=== PATIENT | male | born 1975 | race Caucasian/White ===

== ENCOUNTER 2016-11-03 16:57 | Emergency (ER) | payer OTHER ==
[~2016-11-03] VITALS: Ht 172.7 cm; Wt 118.0 kg
[~2016-11-03 16:57] MED LIST: AUGMENTIN875 MG PO; DUONEB IN; HYDROCHLOROT12.5 MG PO; PROAIR HFA IN
[2016-11-03] MEDS ORDERED: LISINOP/HCTZ1 TA1 PO (17:08)
[2016-11-03] MEDS ORDERED: ATORVASTATIN CA20 MG PO (17:17)
[2016-11-03] MEDS ORDERED: LISINOP/HCTZ1 TA2 PO (17:18)
[2016-11-03] MEDS ORDERED: VENTOLIN H108 MCG/AC IN (17:19)
[2016-11-03] MEDS ORDERED: TRAMADOL HYDROC50 MG PO (17:43)
[2016-11-03 18:10] VITALS: BP 139/84
== END 2016-11-03 18:10 | disposition home or self-care (01) | DRG 563 ==
LOC: ED 16:57
PROC: 0QSQXZZ Reposition Right Toe Phalanx, External Approach (ICD-10-PCS; principal; 2016-11-03)
DX: S92.511A Displaced fracture of proximal phalanx of right lesser toe(s), initial encounter for closed fracture (principal); W22.09XA Striking against other stationary object, initial encounter; Y92.009 Unspecified place in unspecified non-institutional (private) residence as the place of occurrence of the external cause

== ENCOUNTER 2017-12-27 23:57 | Emergency (ER) | payer OTHER ==
[~2017-12-27] VITALS: Ht 172.7 cm; Wt 103.8 kg
[~2017-12-27 23:57] MED LIST changes: +ATORVASTATIN CA20 MG PO; +LISINOP/HCTZ1 TA1 PO; +LISINOP/HCTZ1 TA2 PO; +TRAMADOL HYDROC50 MG PO; +VENTOLIN H108 MCG/AC IN
[2017-12-28 00:25] LABS: GFR > 60 ML/MIN (>=60 (CALC)); GFR FOR AFR.AMER. > 60 ML/MIN (>=60 (CALC))
[2017-12-28 00:39] LABS: ALBUMIN 4.7 g/dL (3.2-5.0); ALKALINE PHOSPHATASE 77 u/l (38-126); ANION GAP 23 (6-22 (CALC)); BILIRUBIN, TOTAL 0.3 mg/dL (0.0-1.4); BUN 8 mg/dL (9-20); BUN/CREATININE RATIO 12 (12-20 (CALC)); CARBON DIOXIDE 22 mmol/l (22-30); CHLORIDE 102 mmol/l (95-108); CREATININE 0.7 mg/dL (0.7-1.3); GFR > 60 ML/MIN (>=60 (CALC)); GFR FOR AFR.AMER. > 60 ML/MIN (>=60 (CALC)); POTASSIUM 4.1 mmol/l (3.5-5.1); SGOT/AST 60 u/l (17-59); SGPT/ALT 83 u/l (21-72); SODIUM 143 mmol/l (137-146); TOTAL PROTEIN 7.8 g/dL (6.3-8.2)
[2017-12-28 00:50] LABS: MYOGLOBIN 127 ng/mL (0 - 121)
[2017-12-28 00:51] LABS: HEMATOCRIT 45.3 % (39.0-50.0); HEMOGLOBIN 15.9 g/dl (14.0-18.0); IMMATURE GRANULOCYTES 0.5 % (0.0-5.0); MEAN CORPUSCULAR HGB CONC 35.1 g/L CALC (32.0-36.0); NEUT# 6.81 thou/uL (1.82-7.42); RED BLOOD COUNT 4.82 mill/uL (4.70-6.10); RED CELL DISTRI WIDTH 11.8 % (11.5-15.5)
[2017-12-28] MEDS ORDERED: LISINOPRIL10 MG PO (01:14)
[2017-12-28] MEDS ORDERED: EFFEXOR37.5 MG PO (01:14)
[2017-12-28] MEDS ORDERED: JANUVIA50 MG PO (01:15)
[2017-12-28] MEDS ORDERED: LIPITOR10 M1 PO (01:16)
[2017-12-28] MEDS ORDERED: PREDNISONE20 MG PO (01:17)
[2017-12-28] MEDS ORDERED: AUGMENTIN500TAB PO (01:18)
[2017-12-28 01:45] LABS: URINE BILIRUBIN - DIPSTICK NEGATIVE (NEGATIVE); URINE BLOOD DIPSTICK NEGATIVE (NEGATIVE); URINE COLOR YELLOW; URINE GLUCOSE - DIPSTICK >=1000 mg/dL (NEGATIVE); URINE KETONE TRACE mg/dL (NEGATIVE); URINE LEUK ESTERASE NEGATIVE (NEGATIVE); URINE NITRITE - DIPSTICK NEGATIVE (Negative); URINE PROTEIN - DIPSTICK NEGATIVE (NEG-TRACE); URINE SPECIFIC GRAVITY <=1.005; URINE UROBILINOGEN - DIPSTICK 0.2 E.U./dL (0.2)
[2017-12-28 01:46] LABS: URINE CLARITY CLEAR
[2017-12-28 01:47] LABS: BARBITURATES NEGATIVE (NEGATIVE); COCAINE NEGATIVE (NEGATIVE); METHADONE NEGATIVE (NEGATIVE); OXCYCODONE NEGATIVE (NEGATIVE); TETRAHYDROCANNABIONOL NEGATIVE (NEGATIVE); TRICYLIC ANTIDEPRESSANTS NEGATIVE (NEGATIVE)
[2017-12-28 01:50] VITALS: BP 126/74
== END 2017-12-28 01:50 | disposition left against medical advice (07) | DRG 69 ==
LOC: ED 23:57
PROVIDERS: Emergency Medicine
DX: G45.9 Transient cerebral ischemic attack, unspecified (principal); I65.22 Occlusion and stenosis of left carotid artery; E11.9 Type 2 diabetes mellitus without complications; I10 Essential (primary) hypertension; Z91.19 Patient's noncompliance with other medical treatment and regimen
CPT/HCPCS: Q9967

== ENCOUNTER 2018-03-10 23:42 | Emergency (ER) | payer OTHER ==
[~2018-03-10] VITALS: Ht 172.7 cm; Wt 105.9 kg
[~2018-03-10 23:42] MED LIST changes: +AUGMENTIN500TAB PO; +EFFEXOR37.5 MG PO; +JANUVIA50 MG PO; +LIPITOR10 M1 PO; +LISINOPRIL10 MG PO; +PREDNISONE20 MG PO
[2018-03-11] MEDS ORDERED: TRULICITY1.5 MG/0.5 SC (00:23)
[2018-03-11] MEDS ORDERED: SEROQUEL25 MG PO (00:24)
[2018-03-11 00:46] LABS: HEMATOCRIT 41.9 % (39.0-50.0); HEMOGLOBIN 14.8 g/dl (14.0-18.0); IMMATURE GRANULOCYTES 0.7 % (0.0-5.0); MEAN CELL VOLUME 96.8 fL CALC (80.0-100.0); MEAN CORPUSCULAR HGB 34.2 pG CALC (26.0-32.0); MEAN CORPUSCULAR HGB CONC 35.3 g/L CALC (32.0-36.0); NEUT# 3.45 thou/uL (1.82-7.42); RED BLOOD COUNT 4.33 mill/uL (4.70-6.10); RED CELL DISTRI WIDTH 12.1 % (11.5-15.5)
[2018-03-11 00:50] LABS: URINE BILIRUBIN - DIPSTICK NEGATIVE (NEGATIVE); URINE BLOOD DIPSTICK NEGATIVE (NEGATIVE); URINE COLOR YELLOW; URINE GLUCOSE - DIPSTICK NEGATIVE (NEGATIVE); URINE KETONE NEGATIVE (NEGATIVE); URINE LEUK ESTERASE NEGATIVE (NEGATIVE); URINE NITRITE - DIPSTICK NEGATIVE (Negative); URINE PROTEIN - DIPSTICK NEGATIVE (NEG-TRACE); URINE SPECIFIC GRAVITY <=1.005; URINE UROBILINOGEN - DIPSTICK 0.2 E.U./dL (0.2)
[2018-03-11 00:55] LABS: COCAINE NEGATIVE (NEGATIVE); METHADONE NEGATIVE (NEGATIVE); TETRAHYDROCANNABIONOL NEGATIVE (NEGATIVE); URINE CLARITY CLEAR
[2018-03-11 00:56] LABS: BARBITURATES NEGATIVE (NEGATIVE); OXCYCODONE NEGATIVE (NEGATIVE); TRICYLIC ANTIDEPRESSANTS NEGATIVE (NEGATIVE)
[2018-03-11 01:09] LABS: ALKALINE PHOSPHATASE 56 u/l (38-126); ANION GAP 18 (6-22 (CALC)); BILIRUBIN, TOTAL 0.4 mg/dL (0.0-1.4); BUN 13 mg/dL (9-20); BUN/CREATININE RATIO 15 (12-20 (CALC)); CARBON DIOXIDE 24 mmol/l (22-30); CHLORIDE 100 mmol/l (95-108); CREATININE 0.9 mg/dL (0.7-1.3); ETHYL ALCOHOL 253 mg/dl (0-30); GFR > 60 ML/MIN (>=60 (CALC)); GFR FOR AFR.AMER. > 60 ML/MIN (>=60 (CALC)); POTASSIUM 3.8 mmol/l (3.5-5.1); SGOT/AST 45 u/l (17-59); SODIUM 138 mmol/l (137-146); TOTAL PROTEIN 6.6 g/dL (6.3-8.2)
[2018-03-11 05:45] VITALS: BP 104/62
== END 2018-03-11 05:45 | disposition home or self-care (01) | DRG 918 ==
LOC: ED 23:42
PROVIDERS: Emergency Medicine
DX: T42.4X1A Poisoning by benzodiazepines, accidental (unintentional), initial encounter (principal); F10.10 Alcohol abuse, uncomplicated; E11.9 Type 2 diabetes mellitus without complications; I10 Essential (primary) hypertension; F32.9 Major depressive disorder, single episode, unspecified; F43.10 Post-traumatic stress disorder, unspecified; E78.00 Pure hypercholesterolemia, unspecified

== ENCOUNTER 2018-08-15 17:32 | Inpatient (IN) | payer OTHER ==
[~2018-08-15] VITALS: Ht 172.7 cm; Wt 113.2 kg
[2018-08-15] VITALS (10 sets, daily range): BP systolic 107–134; BP diastolic 63–90
[~2018-08-15 17:32] MED LIST changes: +SEROQUEL25 MG PO; +TRULICITY1.5 MG/0.5 SC
--- NOTE | 2018-08-15 17:32 | NUR ---
TO ROOM 10 VIA STRETCHER BY EMS
--- NOTE | 2018-08-15 17:52 | NUR ---
AFTER MEDICATING PT PER MD ORDER. PT REMAINS DROWSY WITH SLURRED SPEECH. CHEW REMOVED FROM PT'S MOUTH. GCS REMAINS AT AN 8. MD AWARE, SUCTION AT BEDSIDE.
--- NOTE | 2018-08-15 18:04 | NUR ---
I SPOKE WITH LILY WHO RECOMMENDED SUPPORTIVE CARE FOR 2-4 HOURS WITH LABS AND EKG. WATCH FOR SEIZURE ACTIVITY
--- NOTE | 2018-08-15 18:08 | NUR ---
CARE TRANSFERRED TO MOSHE RAMOS AT THIS TIME.
--- NOTE | 2018-08-15 18:17 | NUR ---
STRAIGHT CATH COMPLETED WITHOUT REACTION. SAMPLE SENT TO LAB.
--- NOTE | 2018-08-15 18:25 | NUR ---
DR VILLAVICENCIO @ BEDSIDE. RT CALLED TO BEDSIDE FOR INTUBATION.
--- NOTE | 2018-08-15 18:43 | NUR ---
1831 2MG VERSED GIVEN BY IV TO #18 LAC #18 RAC ESTABLISHED 1833 2MG VERSED GIVEN BY IV TO #18 LAC 1835 100MG SUCCCINYLCHOLINE GIVEN BY DR VILLAVICENCIO IN #18 LAC 1836 SOFT RESTRAINTS PLACED ON BILATERAL WRISTS [address] VILLAVICENCIO #8 @24/LIP +CO2 +AUSCULATATION +EQUAL CHEST RISE 1841 TUBE SECURED 1843 PROPOFOL DRIP STARTED @5MCG/KG/MIN 1848 PROPOFOL DRIP TITRATED TO 10MCG/KG/MIN 1854 PROPOFOL DRIP TITRATED TO 15MCG/KG/MIN.
[2018-08-15 18:46] LABS: BARBITURATES NEGATIVE (NEGATIVE); COCAINE NEGATIVE (NEGATIVE); METHADONE NEGATIVE (NEGATIVE); OXCYCODONE NEGATIVE (NEGATIVE); TETRAHYDROCANNABIONOL NEGATIVE (NEGATIVE); TRICYLIC ANTIDEPRESSANTS NEGATIVE (NEGATIVE)
[2018-08-15 18:47] LABS: URINE BILIRUBIN - DIPSTICK NEGATIVE (NEGATIVE); URINE BLOOD DIPSTICK NEGATIVE (NEGATIVE); URINE COLOR YELLOW; URINE GLUCOSE - DIPSTICK NEGATIVE (NEGATIVE); URINE KETONE NEGATIVE (NEGATIVE); URINE LEUK ESTERASE NEGATIVE (NEGATIVE); URINE NITRITE - DIPSTICK NEGATIVE (Negative); URINE PROTEIN - DIPSTICK NEGATIVE (NEG-TRACE); URINE UROBILINOGEN - DIPSTICK 0.2 E.U./dL (0.2)
--- NOTE | 2018-08-15 18:53 | NUR ---
5.5 ML OF SUCCINYLCHOLINE WASTED WITH ALESSANDRA NURSING SECRETARY.
--- NOTE | 2018-08-15 19:18 | NUR ---
PROPOFOL OVERRODE IN PYXIS AND SPIKED PER PROTOCOL AND MD VERBAL ORDERS PER TITRATION PROTOCOLS AND RECORDS
--- NOTE | 2018-08-15 19:20 | NUR ---
RECEIVED REPORT FROM MOSHE WHALEN
--- NOTE | 2018-08-15 19:20 | NUR ---
PT REPORT TO MOSHE MURILLO.
[2018-08-15 19:36] LABS: HEMATOCRIT 41.6 % (39.0-50.0); HEMOGLOBIN 13.9 g/dl (14.0-18.0); IMMATURE GRANULOCYTES 0.8 % (0.0-5.0); MEAN CELL VOLUME 94.3 fL CALC (80.0-100.0); MEAN CORPUSCULAR HGB 31.5 pG CALC (26.0-32.0); MEAN CORPUSCULAR HGB CONC 33.4 g/L CALC (32.0-36.0); NEUT# 7.33 thou/uL (1.82-7.42); RED BLOOD COUNT 4.41 mill/uL (4.70-6.10); RED CELL DISTRI WIDTH 11.9 % (11.5-15.5)
--- NOTE | 2018-08-15 19:38 | NUR ---
I RECEIVED A PAGE FROM THE ER. PRESENTED TO THE ER, RECEIVED PATIENT WITH AN ETT NUMBER 8 AT 24 CM OF THE LIPS. PATIENT WAS PLACED ON THE VENTILATOR WITH WITH AC MODE RATE 16, VT 550, 5 PEEP AND 100% OXYGEN. ABG DRAWN AND ANALYSED. RATE INCREASED TO 18 AND FIO2 DROPPED TO 40%. WILL CONTINUE TO MONITOR.
[2018-08-15 19:40] LABS: ALBUMIN 3.9 g/dL (3.2-5.0); ALKALINE PHOSPHATASE 76 u/l (38-126); ANION GAP 17 (6-22 (CALC)); BILIRUBIN, TOTAL 0.3 mg/dL (0.0-1.4); BUN 8 mg/dL (9-20); BUN/CREATININE RATIO 14 (12-20 (CALC)); CARBON DIOXIDE 19 mmol/l (22-30); CHLORIDE 107 mmol/l (95-108); CREATININE 0.6 mg/dL (0.7-1.3); GFR > 60 ML/MIN (>=60 (CALC)); GFR FOR AFR.AMER. > 60 ML/MIN (>=60 (CALC)); MAGNESIUM 1.7 mg/dL (1.6-2.3); POTASSIUM 4.4 mmol/l (3.5-5.1); SGOT/AST 31 u/l (17-59); SODIUM 139 mmol/l (137-146); TOTAL PROTEIN 6.2 g/dL (6.3-8.2)
[2018-08-15 19:42] LABS: ETHYL ALCOHOL 240 mg/dl (0-30)
--- NOTE | 2018-08-15 20:03 | NUR ---
LOWERED DIPROVAN TO 20 MCG DUE TO LOW B/P79/44 LITER SALINE UP ON POLE SPIKED AND HAVE RUNNING WIDE OPEN
--- NOTE | 2018-08-15 20:05 | NUR ---
PT'S BP ALREADY UP TO 88/53
--- NOTE | 2018-08-15 20:18 | NUR ---
BP UP TO 100/63. PT STILL SEDATED WITH LOWER DOSE OF DIPROVAN.
--- NOTE | 2018-08-15 21:00 | NUR ---
CALLED REORT TO LOTTIE BESS. MARIA ALEJANDRA TO COME HELP TRANSFER PT.
--- NOTE | 2018-08-15 21:20 | NUR ---
42 yr old white male admitted icu8 per stretcher from er. transferred x4 assists to bed. bed weight obtained. vent cont unassisted by pt. bus monitor shows sinus rhythm. #20 rac saline lock. #18 lac. ns infusing @ 100cchr, diprivan infusing @ 20mcg/kg/min. history obtained per er records & old records. bilat wrist restraints cont. xiao cath in place. urine clear yellow. granados act in place. fall precautions initiated.
--- NOTE | 2018-08-15 21:20 | NUR ---
Admission Note Report Given to: LOTTIE BESS Transported by: Wheelchair X Stretcher Transported with: X Nurse Transporter X Patent IV X O2 X Fur Buyer INTUBATED -NO-JOLIEVAN AND NS INFUSING
--- NOTE | 2018-08-15 22:05 | NUR ---
ronnie from poison control called this mortgage underwriter. update given.
--- NOTE | 2018-08-15 23:08 | NUR ---
CALLED DR BARNETT FOR ABG RESULT. HE ORDERED TO INCREASE THE RR TO 20
[2018-08-16] VITALS (22 sets, daily range): BP systolic 96–151; BP diastolic 45–90
--- NOTE | 2018-08-16 00:01 | NUR ---
vent cont. awake overnight monitor shows sinus rhythm. xiao draining well.
--- NOTE | 2018-08-16 02:00 | NUR ---
vent cont assisted by pt. no distress.
--- NOTE | 2018-08-16 04:00 | NUR ---
eyes closed. no distress. classroom monitor shows sinus rhythm.
--- NOTE | 2018-08-16 05:15 | NUR ---
blood drawn & sent to lab.
--- NOTE | 2018-08-16 05:30 | NUR ---
ng suction heard in throat. ng tube removed. #16 ng inserted orally without diff & attached to lis.
[2018-08-16 05:34] LABS: HEMATOCRIT 39.2 % (39.0-50.0); HEMOGLOBIN 12.9 g/dl (14.0-18.0); IMMATURE GRANULOCYTES 0.8 % (0.0-5.0); MEAN CELL VOLUME 96.8 fL CALC (80.0-100.0); MEAN CORPUSCULAR HGB 31.9 pG CALC (26.0-32.0); MEAN CORPUSCULAR HGB CONC 32.9 g/L CALC (32.0-36.0); NEUT# 15.41 thou/uL (1.82-7.42); RED BLOOD COUNT 4.05 mill/uL (4.70-6.10); RED CELL DISTRI WIDTH 11.8 % (11.5-15.5)
[2018-08-16 05:58] LABS: ALBUMIN 3.6 g/dL (3.2-5.0); ALKALINE PHOSPHATASE 74 u/l (38-126); ANION GAP 16 (6-22 (CALC)); BILIRUBIN, TOTAL 0.4 mg/dL (0.0-1.4); BUN 7 mg/dL (9-20); BUN/CREATININE RATIO 12 (12-20 (CALC)); CARBON DIOXIDE 20 mmol/l (22-30); CHLORIDE 107 mmol/l (95-108); CREATININE 0.6 mg/dL (0.7-1.3); GFR > 60 ML/MIN (>=60 (CALC)); GFR FOR AFR.AMER. > 60 ML/MIN (>=60 (CALC)); POTASSIUM 4.1 mmol/l (3.5-5.1); SGOT/AST 23 u/l (17-59); SODIUM 139 mmol/l (137-146); TOTAL PROTEIN 5.8 g/dL (6.3-8.2)
--- NOTE | 2018-08-16 06:43 | NUR ---
xray here. pcxr obtained.
--- NOTE | 2018-08-16 06:45 | NUR ---
RECIEVED REPORT FROM [facility] BESS[facility]
--- NOTE | 2018-08-16 07:15 | NUR ---
ASSESSMENT COMPLETED, PT REMAINS ON VENT, SEE RT SETTINGS. OG TUBE IN PLACE LOW/INTERMITTENT SUCTION WITH DARK RED/BROWN DRAINAGE NOTED. NO PATENT TO BSD, DRAINING CLEAR YELLOW URINE. BILAT SOFT WRIST RESTRAINTS INTACT, PERALTA ACT IN PLACE. 18G LAC WITH NS@100ML/HR &DIPROVAN 50MCG/KG/MIN , NO S/S OF INFILTRATION OR REDNESS NOTED AT SITE. 20G TO RAC/SL. FLUSHES WITHOUT DIFFICULTY NOTED. WILL MONITOR.
--- NOTE | 2018-08-16 08:53 | NUR ---
AFTER REVIEW OF CXR, ADVANCED OG TUBE 10CM RECOMMENDED, IMMEDIATE DISCHARGE OG COFFEE GROUNDS DRAINAGE NOTED. PT OPENED EYES, PT CONTINUES IN BILAT SOFT RESTRAINTS WITH PP+ INTACT, CAP REFILL<3SEC. MOUTHCARE PROVIDED. PLACEMENT VERIVIED VIA AUSCULTATION. PT TOLERATED WELL. WILL MONITOR.
--- NOTE | 2018-08-16 10:30 | NUR ---
PT REPOSITIONED, SOFT BILAT RESTRAINTS IN PLACE, PERALTA ACT CONTINUES, MOUTH CARE PROVIDED. PT REMAINS SEDATED. PT TOLERATED WELL. WILL MONITOR.
--- NOTE | 2018-08-16 10:48 | NUR ---
RT AT BEDSIDE
--- NOTE | 2018-08-16 10:57 | NUR ---
DR. BARNETT CALLED, UPDATE GIVEN.
--- NOTE | 2018-08-16 11:45 | NUR ---
DR. BARNETT AT BEDSIDE FOR ASSESSMENT AND TO DISCUSS PLAN OF CARE. NEW ORDERS RECIEVED. CALL PLACED TO NEXT OF KIN, Jacki SOLIS III. DR. BARNETT SPOKE WITH FAMILY, UPDATE GIVEN.
--- NOTE | 2018-08-16 12:29 | NUR ---
NEIL FROM POISON CONTROL CALLED, UPDATE GIVEN. NO NEW RECOMMENDATIONS RECIEVED.
--- NOTE | 2018-08-16 13:08 | NUR ---
RT AT BEDSIDE
--- NOTE | 2018-08-16 13:30 | NUR ---
DR. BARNETT NOTIFIED OF PT HX WITH DM, ACCUCHECK 83.NEW ORDERS RECIEVED.
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
--- NOTE | 2018-08-16 16:00 | NUR ---
MOUTH CARE GIVEN. PT REPOSITIONED. PT BECOME MORE ALERT, PULLING AT RESTRAINTS, DIFFICULT TO REDIRECT. RESTRAINTS REMAIN IN PLACE.
--- NOTE | 2018-08-16 16:35 | NUR ---
PT CONTINUES WITH INCREASE ALERTNESS AND MOVEMENT, PULLING AT RESTRAINTS. INCREASED DIPROVAN PER PROTOCOL.
--- NOTE | 2018-08-16 16:55 | NUR ---
DR. BARNETT NOTIFIED OF PT CONTINUED ALERTNESS, PULLING AT RESTRAINTS, UNABLE TO REDIRECT. NEW ORDERS RECIEVED. RESTRAINTS IN PLACE.
--- NOTE | 2018-08-16 19:00 | NUR ---
vent cont unassisted by pt. hearing specialist shows sinus tach. #18 lac diprivan gtt infusing @ 70mcg/kg/min. #20 rac d5ns infusing @ 75cchr. og to lis draining coffee ground colored drainage. xiao cath in place draining clear yellow urine. bilat wrist rests, scds & fall precautions cont.
--- NOTE | 2018-08-16 22:00 | NUR ---
vent cont unassisted by pt. no distress. desulfurizer machine shows sinus rhythm.
[2018-08-17] VITALS (70 sets, daily range): BP systolic 60–133; BP diastolic 36–81
--- NOTE | 2018-08-17 00:01 | NUR ---
eyes closed. no distress. xiao draining well.
--- NOTE | 2018-08-17 02:00 | NUR ---
vent cont unassisted by pt. resps even & unlabored. no apparent distress.
--- NOTE | 2018-08-17 04:00 | NUR ---
lab here. blood drawn.
--- NOTE | 2018-08-17 04:30 | NUR ---
am care given by 2 staff. linens changed.
[2018-08-17 05:35] LABS: HEMATOCRIT 37.3 % (39.0-50.0); HEMOGLOBIN 12.5 g/dl (14.0-18.0); MEAN CELL VOLUME 94.7 fL CALC (80.0-100.0); MEAN CORPUSCULAR HGB 31.7 pG CALC (26.0-32.0); MEAN CORPUSCULAR HGB CONC 33.5 g/L CALC (32.0-36.0); RED BLOOD COUNT 3.94 mill/uL (4.70-6.10); RED CELL DISTRI WIDTH 11.7 % (11.5-15.5)
[2018-08-17 05:43] LABS: ALBUMIN 3.2 g/dL (3.2-5.0); ALKALINE PHOSPHATASE 77 u/l (38-126); BUN 5 mg/dL (9-20); BUN/CREATININE RATIO 8 (12-20 (CALC)); CHLORIDE 104 mmol/l (95-108); CREATININE 0.6 mg/dL (0.7-1.3); GFR > 60 ML/MIN (>=60 (CALC)); GFR FOR AFR.AMER. > 60 ML/MIN (>=60 (CALC)); POTASSIUM 3.3 mmol/l (3.5-5.1); SGOT/AST 22 u/l (17-59); SODIUM 136 mmol/l (137-146); TOTAL PROTEIN 5.4 g/dL (6.3-8.2)
[2018-08-17 05:48] LABS: ANION GAP 9 (6-22 (CALC)); BILIRUBIN, TOTAL 0.7 mg/dL (0.0-1.4); CARBON DIOXIDE 26 mmol/l (22-30)
--- NOTE | 2018-08-17 06:07 | NUR ---
rt here. abgs drawn. xray here. pcxr obtained.
--- NOTE | 2018-08-17 06:50 | NUR ---
BEDSIDE REPORT RECEIVED FROM MOSHE BESS.
--- NOTE | 2018-08-17 07:07 | NUR ---
PT RESTING IN SEMI FOWLERS HOB 30 DEGREES; VENTILATOR REMAINS ON ASSIST CONTROL SETTINGS; TV 550 FIO2 30% RATE 20 PEEP 5 TAPED AT 24CM ETT 8. DIPRIVAN INFUSING INTO LAC IV SITE AT 70 MCG/KG/MIN; MAINTAINACE FLUIDS INFUSING INTO RAC AT 75ML/HR. BILATERAL IV SITES APPEAR HEALTHY. BILATERAL SOFT WRIST RESTRAINTS INTACT WITH GOOD CSM TO HANDS. CLEAR LUNGS SOUNDS; ACTIVE BOWEL SOUNDS. NO 16F DRAINING CLEAR YELLOW URINE. SCD INTACT BILATERALLY. MILD REDNESS TO HEELS; ELEVATED ON PILLOW. PUPILS PIN POINT AND SLUGGISH. SAFETY MEASURES IN PLACE. CALL LIGHT WITHIN REACH.
--- NOTE | 2018-08-17 07:38 | NUR ---
KRIDER NOW INFUSING FOR POTASSIUM RESULT OF 3.3.
--- NOTE | 2018-08-17 08:04 | NUR ---
TITRATING DIPRIVAN DOWN 5MCG EVERY 5 MINUTES TO BEGIN EXTUBATION ATTEMPT. RT AT BEDSIDE. WRIST RESTRAINTS REMOVED FOR REPOSITIONING AND REAPPLIED; PT NOW RESTING ON RIGHT SIDE WITH HOB ELEVATED.
--- NOTE | 2018-08-17 08:23 | NUR ---
DIPRIVAN DECREASED DOWN TO 40 MCG/KG/MIN; PT REMAINS SEDATED SO FAR; DOES NOT RESPOND OR OPEN EYES TO VERBAL STIMULI. INITIALLY HYPOTENSIVE; VS NOW STABLE.
--- NOTE | 2018-08-17 08:36 | NUR ---
RT AT BEDSIDE; PT MOVING HEAD AND FEET, OPENING EYES. RATE OF RESPIRATIONS DECREASED TO 10 ON VENT.
--- NOTE | 2018-08-17 08:50 | NUR ---
REPIRATIONS AT 18 PM; VENT SETTINGS REMAIN AT 10. PUPILS CHANGED FROM PIN POINT AND SLUGGISH TO 4MM AND BRISK. MOVING ARMS AND LEGS; NOT FOLLOWING COMMANDS FOR HAND PHARMACEUTICAL DEVELOPMENT TECHNICIAN. PROPOFOL NOW AT 15 MCG/KG/MIN. KRIDER AND FLUIDS CONTINUE TO INFUSE WITHOUT DIFFICULTY.
--- NOTE | 2018-08-17 09:03 | NUR ---
PT AWAKE AND FOLLOWING COMMANDS TO SYSTEM CONFIGURATION SPECIALIST FINGERS WITH MODERATE STRENGTH. SLIGHTLY ANXIOUS AND PULLING ON WRIST RESTRAINTS AND MOVING LEGS OUT OF BED. ENCOURAGED TO RELAX; ORIENTED AND ATTACHMENTS EXPLAINED. DIRPRIVAN NOW DISCONTINUED. SAFETY MEASURES IN PLACE.
--- NOTE | 2018-08-17 09:23 | NUR ---
PT EXTREMELY AGITATED AND PULLING AT RESTRAINTS AND THRASHING BODY AROUND IN BED. RELAXATION TECHNIQUES AND VERBAL CUES INEFFECTIVE. DIPRIVAN RESTARTED; WILL REASSES. RT AT BEDSIDE AND ADDITIONAL NURSE. INCREASED SECRETIONS RT TO SUCTION.
--- NOTE | 2018-08-17 09:42 | NUR ---
LESS ANXIOUS, CONTINUES PULLING ON RESTRAINTS AND SHIFTING FEET OUT OF BED; ATIVAN PULLED, BUT NOT GIVEN DIPRIVAN IS EFFECTIVE, CONTINUING TO INCREASE DOSE EVERY 5 MINUTES. VENTILATOR REMAINS ON ASSIST CONTROL SETTINGS RESPIORATIONS SET TO 16 PRM; ACTUAL RPM 30. WILL CONTINUE TO MONITOR.
--- NOTE | 2018-08-17 10:28 | NUR ---
DIPRIVAN CURRENTLY INFUSING AT 70 MCG/KG/HR IT WAS PRIOR TO WEAN. SBP OCCASINALLY DECREASING INTO THE 80'S UNSUSTAINED; CURRENTLY 116/59. SINUS TACH ON TELE MONITOR. PT OPENS EYES AND LOOKS AROUND; MOVES EXTREMITIES. CONTINUING WITH VERBAL CUES AND RELAXATION ENCOURAGEMENT.
--- NOTE | 2018-08-17 11:01 | NUR ---
DR. BARNETT AT BEDSIDE; NEW ORDERS TO BEGIN ANOTHER EXTUBATION ATTEMPT. DIPRIVAN TITRATED DOWN TO 65MCG/KG/MIN. RT NOTIFED.
--- NOTE | 2018-08-17 11:07 | NUR ---
RESPIRATORY AT BEDSIDE TO DISCUSS EXTUBATION WITH DR. BARNETT. THEY AGREED TO WAIT ONE MORE DAY; WILL CONTINUE DIPRIVAN AT 70 MCG/KG/MIN AND MONITOR. TEMPERATURE INCREASING WILL ALSO CONTINUE TO MONITOR.
--- NOTE | 2018-08-17 11:12 | NUR ---
SPUTUM OBTAINED BY RT AND SENT TO LAB FOR CULTURE.
--- NOTE | 2018-08-17 12:00 | NUR ---
FATHER CALLED FOR UPDATE. STATES THAT HE WILL VISIT TOMORROW FROM [facility].
--- NOTE | 2018-08-17 12:41 | NUR ---
POISON CONTROL CALLED FOR UPDATE. UPDATE PROVIDED AND MOST RECENT SET OF VS.
--- NOTE | 2018-08-17 12:51 | NUR ---
DIPRIVAN TITRATED DOWN TO 60 MCG/KG/MIN DUE TO HYPOTENSION.
--- NOTE | 2018-08-17 13:16 | NUR ---
PT RESTING ON LEFT SIDE WITH NO SIGNS OF DISTRESS. RESPIRATIONS EVEN AND UNLABORED ON VENT. SETTINGS REMAIN THE SAME. NO NOW DRAINING YELLOW/GREEN COLORED URINE. BLOOD PRESSURE IMPROVING; CURRENTLY 95/50 HR 95.
--- NOTE | 2018-08-17 14:34 | NUR ---
REPOSITIONED ONTO RIGHT SIDE; PT OPENS EYES AND LOOKS AROUND THE ROOM. BLOOD PRESSURE STABLE. FEET ELEVATED ON PILLOWS. IV SITES APPEAR HEALTHY. SAFETY MEASURES IN PLACE. NEEDS ANTICIPATED BY STAFF.
--- NOTE | 2018-08-17 15:35 | NUR ---
PT FOUND WITH LEGS OVER THE SIDE OF THE BED; PULLED UP IN BED AND REPOSITIONED. WHEN GIVING ORAL CARE PT BIT DOWN ON EQUIPMENT. DIPRIVAN TITRATED UP TO 70 MCG/KG/MIN; WILL MONITOR VS FOR HYPOTENSION.
--- NOTE | 2018-08-17 15:51 | NUR ---
TYLENOL ADMINSITERED IN NG TUBE FOR TEMP OF 101.5; SUCTION PAUSED AND PT POSITIONED IN HIGH FOWLERS.
--- NOTE | 2018-08-17 18:00 | NUR ---
TEMPERATURE DOWN TO 98.4; PT REPOSITIONED ONTO LEFT SIDE. APPEARS COMFORTABLE. 1150ML EMPTIED FROM NO AND 575ML FROM SUCTION CONTAINER/OGT. SCD'S REMAIN INTACT TO BLE. SOFT WRIST RESTRAINTS INTACT TO BILATERAL WRISTS WITH GOOD CSM TO HANDS. DIPRIVAN CONTINUES AT 70MCG/KG/MIN AND VENT SETTINGS UNCHANGED. SON CALLED FOR UPDATE. SAFETY MEASURES IN PLACE.
--- NOTE | 2018-08-17 19:00 | NUR ---
went cont assisted by pt. vianney lindquist. bus driver/monitor shows sinus rhythm. og in place to lis draining dk brown drainage. #18 lac diprivan gtt cont @ 70mcg/kg/min. #10 rac d5ns infusing @ 75cchr. xiao cath in place. urine clear yellow. bilat wrist restraints, scds & fall precautions cont. requires total care for all needs. granados act cont.
--- NOTE | 2018-08-17 22:00 | NUR ---
vent cont unassisted by pt. no distress. conveyor monitor shows sinus rhythm.
[2018-08-18] VITALS (39 sets, daily range): BP systolic 90–136; BP diastolic 53–85
--- NOTE | 2018-08-18 00:01 | NUR ---
eyes closed. remains sedated. no distress. electronic device monitor shows sinus rhythm.
--- NOTE | 2018-08-18 02:00 | NUR ---
vent cont unassisted by pt. manager housekeeping shows sinus rhythm. xiao draining well.
--- NOTE | 2018-08-18 03:30 | NUR ---
AT 0330, SPO2 DROPPED TO 90% ON 30% FIO2 AFTER BEING SUCTIONED AND [place] FOR THE REMOVAL OF MODERATE AMOUNT OF THICK YELLOWISH SECRETION. FIO2 INCREASED TO 40%. WILL CONTINUE TO MONITOR.
--- NOTE | 2018-08-18 04:10 | NUR ---
lab here. blood drawn.
--- NOTE | 2018-08-18 04:20 | NUR ---
rt here. abgs drawn.
--- NOTE | 2018-08-18 04:43 | NUR ---
PATIENT RECEIVED WITH THE FOLLOWING SETTING: AC RATE 16, VT 550, PEEP 5, FIO2 30%. WILL CONTINUE TO MONITOR THE PATIENT.
--- NOTE | 2018-08-18 05:00 | NUR ---
am care given x2 staff. jolly mitchell.
[2018-08-18 05:31] LABS: HEMATOCRIT 39.9 % (39.0-50.0); HEMOGLOBIN 12.9 g/dl (14.0-18.0); IMMATURE GRANULOCYTES 0.9 % (0.0-5.0); MEAN CELL VOLUME 97.6 fL CALC (80.0-100.0); MEAN CORPUSCULAR HGB 31.5 pG CALC (26.0-32.0); MEAN CORPUSCULAR HGB CONC 32.3 g/L CALC (32.0-36.0); NEUT# 4.82 thou/uL (1.82-7.42); RED BLOOD COUNT 4.09 mill/uL (4.70-6.10); RED CELL DISTRI WIDTH 12.1 % (11.5-15.5)
--- NOTE | 2018-08-18 05:49 | NUR ---
xray here. pcxr obtained.
[2018-08-18 06:05] LABS: ANION GAP 11 (6-22 (CALC)); BUN 5 mg/dL (9-20); BUN/CREATININE RATIO 7 (12-20 (CALC)); CARBON DIOXIDE 27 mmol/l (22-30); CHLORIDE 106 mmol/l (95-108); CREATININE 0.7 mg/dL (0.7-1.3); GFR > 60 ML/MIN (>=60 (CALC)); GFR FOR AFR.AMER. > 60 ML/MIN (>=60 (CALC)); POTASSIUM 3.6 mmol/l (3.5-5.1); SODIUM 140 mmol/l (137-146)
--- NOTE | 2018-08-18 07:00 | NUR ---
PT RESTING IN BED WITH EYES CLOSED. PT OPENS EYES TO TOUCH. PT ON VENT AT THIS TIME. RESTRAINTS REMOVED FOR ROM AT THIS TIME. WILL ANTICIPATE NEEDS FOR PATIENT. CALL LIGHT IN REACH. WILL CONTINUE TO MONITOR
--- NOTE | 2018-08-18 07:25 | NUR ---
RESPIRATORY THERAPY AT BEDSIDE
--- NOTE | 2018-08-18 08:40 | NUR ---
SPOUSE ABIMBOLA PHONED TO STATE THAT SHE PATIENT WAS SUPPOSE TO TAKE A SHOT FOR ALCOHOLISM ON August AND IT SHOULD MAKE HIM SICK IF HE DRINKS. SHE ASEKD THE WE REQUEST HIS RECORDS FROM DR VIVEROS IN [place] BECAUSE THE SHOT COULD INTERFERE WITH OTHER MEDICATIONS.
--- NOTE | 2018-08-18 08:53 | NUR ---
MEDIAL RECORDS REQUEST FAXED TO DR VIVEROS OFFICE AT [phone]
--- NOTE | 2018-08-18 10:43 | NUR ---
WEANED PATIENT FROM PROPOFOL AT 70 TO 50. PT MOVES FEET A BIT AND EYES OPEN BRIEFLY WHEN NAME IS CALLED. WILL CONTINUE TO MONITOR AND AWAIT MD ORDERS FOR FURTHER WEANING AT THIS TIME
--- NOTE | 2018-08-18 11:12 | NUR ---
FATHER AT BEDSIDE. EXPLAINED TO FATHER THAT PATIENT IS CURRENTLY UNDER PERALTA ACT. FATHER VERBALIZED UNDERSTANDING.
--- NOTE | 2018-08-18 11:25 | NUR ---
WEANING FOR EXTUBATION STARTED AT THIS TIME
--- NOTE | 2018-08-18 11:30 | NUR ---
DR BLANC AT BEDSIDE TO DISCUSS PLAN OF CARE.
--- NOTE | 2018-08-18 11:35 | NUR ---
RESPIRATORY AT BEDSIDE SETTINGS CHANGED TO CPAP MODE. PT IS AWAKE WITH PROPOFOL AT 55MCG
--- NOTE | 2018-08-18 11:40 | NUR ---
WEANING OF PROPOFOL STARTED AT THIS TIME.
--- NOTE | 2018-08-18 12:20 | NUR ---
PT EXTUBATED AT THIS TIME BY RESPIRTORY THERAPY PATRICIA DAWKINS. DR BLANC AND FATHER AT BEDSIDE. O2 3L NC APPLIED. PT IMMEADIATELY BEGAN CURSING AT STAFF.
--- NOTE | 2018-08-18 12:40 | NUR ---
PT STATING HE IS GOING TO COMMIT SUICIDE AND LEAVE AMA. EXPLAINED TO PT THAT HE IS A PERALTA ACT AND CANNOT LEAVE. PT VERBALIZED UNDERSTANDING. PT CONTINUES TO CURSE AT STAFF. EXPLAINED TO PT THAT THERE IS NO NEED TO CURSE AT STAFF. PT VERBALIZED UNDERSTANDING.
--- NOTE | 2018-08-18 12:55 | NUR ---
WHEN FATHER LEFT BEDSIDE HE STATED THAT SPOUSE HAD REQUESTED HE TAKE KEYS TO VEHICLE HOME. KEYS PROVIDED TO FATHER. FATHER ALSO PROVIDED PHONE NUMBER FOR CONTACT INFO [phone]
--- NOTE | 2018-08-18 13:00 | NUR ---
ICE CHIPS PROVIDED
--- NOTE | 2018-08-18 13:15 | NUR ---
PT CURSING ALLOWED IN ROOM. PT STATES THAT WHEN HE SPEAKS HE CURSES. EXPLAINED THAT HE CAN CURSE BUT CANNOT CURSE AND DEMEAN STAFF. PT AGREED. PT CONTINUES TO MAKE SUICIDE COMMENTS. AND CONTINUES TO SPEAK ABOUT CHEATING AND HAVING AN AFFAIR EXPLAINED TO PATIENT THAT AT THIS TIME IT IS IMPORTANT FOR HIM TO FOCUS ON HIS HEALTH AND TO GET WELL.
--- NOTE | 2018-08-18 13:39 | NUR ---
Peripheral IV started. IV access obtained with #22 AutoGuard at Right Forearm with 1IV stick attempts. Flushes easily with good blood return.
--- NOTE | 2018-08-18 14:11 | NUR ---
PT YELLING OUT CRISTINA STATING HE HEARS HER VOICE AND THAT THEY HAVE A CONTRACT. THIS BACK HOE OPERATOR EXPLAINED THERE IS NO ONE BY THE NAME OF CRISTINA HERE. PATIENT CONTINUALLY TRYING TO GET OUT OF BED. PT REMOVED O2 FROM NOSE EXPLAINED THAT DUE TO JUST BEING EXTUBATED NE NEEDS TO LEAVE OXYGEN IN PLACE OR HE MAY REQUIRE INTUABTION. PT STATE HE WILL LYNN IF WE INTUBATE EXPLAINED HE IS NOT A DNR AND WILL REQUIRE INTUBATION IF HE DECOMPENSATES
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
--- NOTE | 2018-08-18 14:29 | NUR ---
DR BLANC NOTIFIED ABOUT INCREASED PT AGITATION
--- NOTE | 2018-08-18 14:39 | NUR ---
HALDOL 5MG GIVEN IVP FOR INCREASED AGITATION PER MAR
--- NOTE | 2018-08-18 14:44 | NUR ---
PT PULLING AT WIRES TAKING OFF OXYGEN BEING COMBATIVE AND ARGUMENTIVE WITH STAFF. PT ATTMEPTING TO SWING AND HIT THIS WORKERS' COMPENSATION CLAIMS EXAMINER.
--- NOTE | 2018-08-18 15:13 | NUR ---
RECEIVED RECORDS BACK FROM DR VIVEROS OFFICE THAT PATIENT HAD NOT BEEN SEEN SINCE 2013
--- NOTE | 2018-08-18 15:13 | NUR ---
PT YELLING OUT THAT HE WOULD LIKE TO CALL [facility] OFFICE EXPLAINED ONCE AGAIN THAT HE IS A PERALTA ACT AND IS AWAITING MEDICAL CLEARANCE AND WE DO NOT ALLOW CALLS UNDER A PERALTA ACT. PT CURSES AT STAFF AGAIN
--- NOTE | 2018-08-18 15:19 | NUR ---
MARCELINO FROM CASE MANAGEMENT AT BEDSIDE AT THIS TIME
--- NOTE | 2018-08-18 15:35 | NUR ---
PT YLLING OUT THAT HE HAS TO PEE EXPLAINED THAT HE HAS A CATHETER IN HIS BLADDER.
--- NOTE | 2018-08-18 16:10 | NUR ---
PT ATTEMPTING TO GET OUT OF BED. PT PLACED BACK IN BED BY BOTH STAFF. PT YELLING OUT FOR . AND YELLING I WANT TO WAIVE MY RIGHTS FOR A PERALTA ACT.
--- NOTE | 2018-08-18 16:12 | NUR ---
DR BLANC NOTIFIED ABOUT PT CONTINUING TO ATTEMPT TO GET OUT OF BED AND YELL OUT AND CUSS STAFF.
--- NOTE | 2018-08-18 16:20 | NUR ---
PT MEDICATED WITH ATIVAN PER ROCHELLE
--- NOTE | 2018-08-18 17:15 | NUR ---
PT TRYING TO GET OUT OF BED. STATING HE NEEDS TO CALL HIS JOB. EXPLAINED THAT HE IS STILL UNDER A PERALTA ACT AND PHONE CALLS ARE NOT ALLOWED. PT STATED THAT HE IS COLD. TEMP CHECK AND NOTED THAT TEMP IS 100.4. MEDICATED WITH TYLENOL PER MAR. WILL MONITOR TEMP. PHONED FATHER TO SEE IF HE COULD NOTIFY JOB OF PATIENT STATUS. FATHER STATED THAT HE WOULD. CALLED AND REQUESTED UPDATE. STATED THAT SHE UNDERSTOOD THAT NOW THAT THE PATIENT IS EXTUBATED SHE MAY NOT BE ABLE TO RECEIVE INFORMATION HOWEVER COULD THE SON RECEIVE INFORMATION. ASKED PATIENT IF ABIMBOLA COULD RECEIVE INFORMATION AND HE STATED NO. ASKED IF SON STEVE COULD RECIEVE INFORMATION HE STATED YES. ASKED IF FATHER STEVE COULD RECEIVE INFORMATION HE STATED YES. UPDATED SON ON PATIENT STATUS. UPDATED PATIENT THAT SON WAS UPDATED. PT VERBALIZED UNDERSTANDING. PT STILL HAVING THOUGHTS THAT [employer]AZ[employer] DAILY IS IN BUILDING
--- NOTE | 2018-08-18 17:53 | NUR ---
PT SET UP FOR PM MEAL. PT TOLERATING MEAL WELL.
--- NOTE | 2018-08-18 18:06 | NUR ---
PT REQUESTING ICE CREAM. QUESTIONED PT IF HE IS A DIABETIC. PT STATES THAT YES HE IS THAT HE IS ON TRULICITY ONCE A WEEK PT CONTINUES TO BE CONFUSED ON DAY OF WEEK. ONCE AGAIN EXPLAINED THAT IT IS SATURDAY AND HE HAS BEEN HERE SINCE SATURDAY. PHARMACY CONSULT PLACED FOR MED REC TO BE ADDRESSED NOW THAT PATIENT IS EXTUBATED.
--- NOTE | 2018-08-18 18:11 | NUR ---
TEMP RECHECK 99.6
--- NOTE | 2018-08-18 18:48 | NUR ---
REPORT FROM MOSHE RUEDA. ASSUMED PT. CARE.
--- NOTE | 2018-08-18 19:30 | NUR ---
PT. AMBULATORY WITH STEADY GAIT TO RESTROOM AT THIS TIME. NO BM NOTED. SOMEWHAT UNSTEADY. ONE PERSON MIN ASSIST TO RESTROOM AND BACK TO BED WITH SITTER PRESENT.
--- NOTE | 2018-08-18 19:40 | NUR ---
PT. FOUND RESTING ON RT. SIDE IN NO DISTRESS. RESPS EVEN AND UNLABORED. ORIENTED TO PERSON AND PLACE. PT. HAS GIVEN MULTIPLE INCORRECT ANSWERS FOR DATE AND YEAR, BUT DOES REORIENT EASILY. CALL LIGHT WITHIN REACH. COOPERATIVE AT THIS TIME. DIMINISHED BASES. SCANT COUGH NOTED. D5NS INFUSING AT 75 CC/HR AT THIS TIME. PT. DENIES COMPLAINTS OF PAIN. UPDATED ON PLAN OF CARE FOR THE EVENING. DISTIL PULSES INTACT. VSS. WILL CONTINUE TO CLOSELY MONITOR AND HAVE SITTER AT BEDSIDE.
--- NOTE | 2018-08-18 20:10 | NUR ---
PT. BECOMING AGGITATED AND UNCOOPERATIVE. PT. STATING HE HEARS HIS OUTSIDE THE ROOM. PT. REORIENTED TO SITUATION AND INFORMED THAT HIS AT NO TIME HAS BEEN PRESENT IN THE ICU THIS EVENING. PT. STATES HE CONTINUES TO "HEAR HER" OUTSIDE HIS ROOM. AGAIN REORIENTED. PT. INSISTING TO USING A CELL PHONE THAT HE STATES IS UNDER HIS BED SO HE CAN CALL IS SON. PT. INFORMED THAT HIS PHONE IS NOT UNDER HIS BED AND THIS RN WOULD CALL HIS SON IN A SHORT WHILE. SON WAS CALLED AND VOICEMAIL LEFT FOR HIM TO RETURN CALL HIS FATHER WOULD LIKE TO SPEAK WITH HIM. PT. MEDICATED FOR AGGITATION AND HALLUCINATIONS PER MD ORDERS. WILL CONTINUE TO ASSESS.
--- NOTE | 2018-08-18 20:44 | NUR ---
ACCUCHECK 131. PATIENT WILL RECEIVE NO COVERAGE AT THIS TIME PER ORDERS.
--- NOTE | 2018-08-18 20:47 | NUR ---
SPOKE TO C[facility] WITH THE [facility] AND THEY WERE UPDATED ON PATIENT'S CONDITION.
--- NOTE | 2018-08-18 22:15 | NUR ---
PT. RESTING IN BED CALM AT THIS TIME. EYES CLOSED. RESPS EVEN AND UNLABORED. SITTER REMAINS AT BEDSIDE AND IV FLUIDS CONTINUE TO INFUSE AT 75 CC/HR. WILL CONTINUE TO CLOSELY MONITOR.
--- NOTE | 2018-08-18 23:45 | NUR ---
PT. RESTING IN BED WITH EYES CLOSED. SNORING RESPIRATIONS NOTED. VSS. CALL LIGHT REMAINS WITHIN REACH. RESPS REMAIN EVEN AND UNLABORED. NO INTACT. SITTER REMAINS AT BEDSIDE AT THIS TIME. WILL CONTINUE TO MONITOR.
[2018-08-19] VITALS: BP 97/51
--- NOTE | 2018-08-19 01:10 | NUR ---
PT. CONTINUES TO REST WELL IN NO DISTRESS. ZOSYN INFUSED WITHOUT SX OF REACTION. VSS. REMAINS STABLE. SITTER REMAINS AT BEDSIDE.
[2018-08-19 02:00] VITALS: BP 116/74
--- NOTE | 2018-08-19 03:05 | NUR ---
PT. CONTINUES TO REST WELL AND REMAINS CALM AT THIS TIME. PT. REMAINS STABLE ON THE MONITOR IN NO DISTRESS. SITTER REMAINS AT BEDSIDE AT THIS TIME. RESPS REMAIN EVEN AND UNLABORED.
[2018-08-19 04:00] VITALS: BP 128/77
--- NOTE | 2018-08-19 05:45 | NUR ---
LAB AT BEDSIDE TO DRAW PATIENT AT THIS TIME. CALL LIGHT REMAINS WITHIN REACH.
--- NOTE | 2018-08-19 06:07 | NUR ---
NEB TREATMENT IN PROGRESS AT THIS TIME. IV ZOSYN INFUSING WITHOUT SIGNS OF REACTIONS AT THIS TIME. CALL LIGHT REMAINS WITHIN REACH. SITTER REMAINS AT BEDSIDE AT THIS TIME. PT. REMAINS STABLE AND COOPERATIVE AT THIS TIME.
[2018-08-19 06:08] LABS: HEMATOCRIT 37.2 % (39.0-50.0); HEMOGLOBIN 12.1 g/dl (14.0-18.0); IMMATURE GRANULOCYTES 0.7 % (0.0-5.0); MEAN CELL VOLUME 96.9 fL CALC (80.0-100.0); MEAN CORPUSCULAR HGB 31.5 pG CALC (26.0-32.0); MEAN CORPUSCULAR HGB CONC 32.5 g/L CALC (32.0-36.0); NEUT# 3.42 thou/uL (1.82-7.42); RED BLOOD COUNT 3.84 mill/uL (4.70-6.10)
[2018-08-19 06:34] LABS: ALBUMIN 3.1 g/dL (3.2-5.0); ALKALINE PHOSPHATASE 60 u/l (38-126); ANION GAP 8 (6-22 (CALC)); BILIRUBIN, TOTAL 0.5 mg/dL (0.0-1.4); BUN 4 mg/dL (9-20); BUN/CREATININE RATIO 6 (12-20 (CALC)); CARBON DIOXIDE 28 mmol/l (22-30); CHLORIDE 110 mmol/l (95-108); CREATININE 0.6 mg/dL (0.7-1.3); GFR > 60 ML/MIN (>=60 (CALC)); GFR FOR AFR.AMER. > 60 ML/MIN (>=60 (CALC)); LIPASE 48 u/l (23-300); MAGNESIUM 1.9 mg/dL (1.6-2.3); POTASSIUM 3.4 mmol/l (3.5-5.1); SGOT/AST 16 u/l (17-59); SODIUM 142 mmol/l (137-146); TOTAL PROTEIN 5.4 g/dL (6.3-8.2)
[2018-08-19 06:37] LABS: AMYLASE < 30 u/l (30-110)
--- NOTE | 2018-08-19 07:30 | NUR ---
PT RESTING IN BED AWAKE. PT IS ALERT AND ORIENTED X3. SHIFT ASSESSMENT COMPLETED AT THIS TIME. IV PATENT X1. CALL LIGHT IN REACH. WILL CONTINUE TO MONITOR.
--- NOTE | 2018-08-19 07:46 | NUR ---
PT SET UP FOR AM MEAL AT THIS TIME
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
--- NOTE | 2018-08-19 08:19 | NUR ---
PT AMBULATED TO BATHROOM IN ROOM FOR AM CARE. LINENS CHANGED AT THIS TIME.
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
--- NOTE | 2018-08-19 09:00 | NUR ---
PT AMBULATED TO REST ROOM WITH SLOW STEADY GAIT; LOOSE BM; REQUESTING NO REMOVAL; NURSE INFORED; WAITING ON DR'S ORDER FOR REMOVAL.
--- NOTE | 2018-08-19 09:29 | NUR ---
DR BLANC AT BEDSIDE TO DISCUSS PLAN OF CARE
--- NOTE | 2018-08-19 09:32 | NUR ---
PT REMAIN SITTING UP IN CHAIR; ORDERS TO REMOVE IV, AND NO CATH; (DONE) IV CATH INTACT UPON REMOVAL.
--- NOTE | 2018-08-19 09:39 | NUR ---
NOTIFIED CASE MANAGEMENT MARCELINO THAT PATIENT WAS MEDICALLY CLEARED FOR CSU
--- NOTE | 2018-08-19 09:45 | NUR ---
PT REQUEST TO URINATE IN THE BATHROOM, WALKED WITH SLOW, UNSTEADY GAIT; VOIDED A FEW DROP, NOW BACK INTO RECLINER, LEGS ELEVATED, APPEARS CALM.
[2018-08-19 10:00] VITALS: BP 127/76
--- NOTE | 2018-08-19 10:34 | NUR ---
ASSISTED PT BACK INTO BED, SEEMS A BIT CONFUSED, SAYS " MY IS SUPPOSE TO PICK ME UP" REORIENT PT TO PLACE AND PLAN.
--- NOTE | 2018-08-19 10:43 | NUR ---
call to [facility] for transport
--- NOTE | 2018-08-19 11:00 | NUR ---
PT DISCHARGED WITH [facility] TO [facility] A [facility] ACT VIA WHEELCHAIR.
--- NOTE | 2018-08-19 11:00 | NUR ---
Discharge instructions given. Patient verbalizes understanding of same. Discharged in stable condition via Wheelchair to Home with [facility]. All belongings sent with pt.
--- NOTE | 2018-08-19 11:10 | NUR ---
BED ASSIGNMENT RECEIVED. AWAITING TO GIVE REPORT AND TRANSPORT TO FLOOR
--- NOTE | 2018-08-19 11:11 | NUR ---
ATTEPMTED TO NOTIFY SPOUSE, SON, AND FATHER OF DISCHARGE TO CSU. LEFT MESSAGE ON FATHERS PHONE. WITH CALL BACK NUMBER TO ICU.
--- NOTE | 2018-08-19 11:13 | NUR ---
UNABLE TO PLACE IN ALL OF THIS SHIFT VITAL SIGNS DUE TO MONITOR IN ROOM BEING TURNED OFF.
== END 2018-08-19 11:00 | DRG 917 ==
LOC: ED 17:32 → ED-I 19:50 → ED 20:00 → ICU 20:01
PROVIDERS: Emergency Medicine; Internal Medicine Nephrology; ADMIT Internal Medicine; ATTEND Internal Medicine
PROC: 0BH17EZ Insertion of Endotracheal Airway into Trachea, Via Natural or Artificial Opening (ICD-10-PCS; principal; 2018-08-15)
PROC: 5A1945Z Respiratory Ventilation, 24-96 Consecutive Hours (ICD-10-PCS; 2018-08-15)
PROC: 0T9B70Z Drainage of Bladder with Drainage Device, Via Natural or Artificial Opening (ICD-10-PCS; 2018-08-15)
DX: T42.4X2A Poisoning by benzodiazepines, intentional self-harm, initial encounter (principal); J96.00 Acute respiratory failure, unspecified whether with hypoxia or hypercapnia; J69.0 Pneumonitis due to inhalation of food and vomit; F10.129 Alcohol abuse with intoxication, unspecified; E11.9 Type 2 diabetes mellitus without complications; I10 Essential (primary) hypertension; F43.10 Post-traumatic stress disorder, unspecified; F41.9 Anxiety disorder, unspecified; F32.9 Major depressive disorder, single episode, unspecified; Y90.8 Blood alcohol level of 240 mg/100 ml or more; Z78.1 Physical restraint status; Z91.5 Personal history of self-harm
CPT/HCPCS: J2060; S0164

== ENCOUNTER 2018-10-15 10:46 | Emergency (ER) | payer OTHER ==
[~2018-10-15] VITALS: Ht 172.7 cm; Wt 95.0 kg
[2018-10-15 11:29] LABS: HEMATOCRIT 41.2 % (39.0-50.0); HEMOGLOBIN 13.8 g/dl (14.0-18.0); MEAN CELL VOLUME 94.3 fL CALC (80.0-100.0); MEAN CORPUSCULAR HGB 31.6 pG CALC (26.0-32.0); MEAN CORPUSCULAR HGB CONC 33.5 g/L CALC (32.0-36.0); NEUT# 18.29 thou/uL (1.82-7.42); RED BLOOD COUNT 4.37 mill/uL (4.70-6.10); RED CELL DISTRI WIDTH 12.4 % (11.5-15.5)
[2018-10-15 12:17] LABS: BUN 16 mg/dL (9-20); CHLORIDE 103 mmol/l (95-108); SODIUM 142 mmol/l (137-146)
[2018-10-15 12:26] LABS: ALBUMIN 3.9 g/dL (3.2-5.0); ANION GAP 28 (6-22 (CALC)); BILIRUBIN, TOTAL 0.2 mg/dL (0.0-1.4); BUN/CREATININE RATIO 7 (12-20 (CALC)); CARBON DIOXIDE 15 mmol/l (22-30); CREATININE 2.2 mg/dL (0.7-1.3); GFR 33 ML/MIN (>=60 (CALC)); GFR FOR AFR.AMER. 40 ML/MIN (>=60 (CALC)); POTASSIUM 4.4 mmol/l (3.5-5.1)
[2018-10-15 12:27] LABS: ALKALINE PHOSPHATASE 95 u/l (38-126); SGOT/AST 31 u/l (17-59)
[2018-10-15 12:42] LABS: MYOGLOBIN 950 ng/mL (0 - 121)
[2018-10-15 12:47] LABS: TSH, 3RD GENERATION 1.85 uIU/mL (0.47 - 4.68)
[2018-10-15 15:24] LABS: URINE BLOOD DIPSTICK MODERATE (NEGATIVE); URINE COLOR YELLOW; URINE GLUCOSE - DIPSTICK NEGATIVE (NEGATIVE); URINE KETONE 15 mg/dL (NEGATIVE); URINE LEUK ESTERASE NEGATIVE (NEGATIVE); URINE NITRITE - DIPSTICK NEGATIVE (Negative); URINE PH 5.5 (4.5-8.0); URINE PROTEIN - DIPSTICK 30 mg/dL (NEG-TRACE); URINE SPECIFIC GRAVITY >=1.030; URINE UROBILINOGEN - DIPSTICK 0.2 E.U./dL (0.2)
[2018-10-15 15:25] LABS: URINE BILIRUBIN - DIPSTICK NEGATIVE (NEGATIVE)
[2018-10-15 15:27] LABS: BARBITURATES NEGATIVE (NEGATIVE); COCAINE NEGATIVE (NEGATIVE); METHADONE NEGATIVE (NEGATIVE); OXCYCODONE POSITIVE (NEGATIVE); TETRAHYDROCANNABIONOL NEGATIVE (NEGATIVE); TRICYLIC ANTIDEPRESSANTS NEGATIVE (NEGATIVE)
[2018-10-15 15:34] LABS: URINE AMORPH SEDIMENT MODERATE hpf (NONE-FER); URINE FINE GRAN CAST FEW lpf; URINE MUCUS FEW hpf (NONE-FEW)
[2018-10-15] MEDS ORDERED: ATORVASTATIN CA10 MG PO (16:19)
[2018-10-15] MEDS ORDERED: BUSPAR10 M1 PO (16:20)
[2018-10-15] MEDS ORDERED: QUETIAPINE FUM100 MG PO (16:20)
[2018-10-15] MEDS ORDERED: NALTREXONE50 MG PO (16:21)
[2018-10-15] MEDS ORDERED: CYMBALTA60 MG PO (16:23)
[2018-10-15 16:24] VITALS: BP 106/51
[2018-10-15] MEDS ORDERED: LISINOPRIL10 MG PO (16:24)
== END 2018-10-15 16:27 | disposition home or self-care (01) | DRG 918 ==
LOC: ED 10:46
PROVIDERS: Family Medicine
DX: T46.4X1A Poisoning by angiotensin-converting-enzyme inhibitors, accidental (unintentional), initial encounter (principal); I95.2 Hypotension due to drugs; M62.82 Rhabdomyolysis; E86.0 Dehydration; E11.9 Type 2 diabetes mellitus without complications; I10 Essential (primary) hypertension; F17.210 Nicotine dependence, cigarettes, uncomplicated